=== PATIENT | male | born 1980 | race Caucasian/White ===

== ENCOUNTER 2019-05-06 13:38 | Emergency (ER) | payer SELFPAY ==
[~2019-05-06] VITALS: Ht 185.4 cm; Wt 99.8 kg
[2019-05-06 14:00] VITALS: BP 147/87
--- NOTE | 2019-05-06 14:02 | NUR ---
PT AMBULATED TO ED JUAN ALBERTO
--- NOTE | 2019-05-06 15:05 | NUR ---
ASSESSMENT COMPLETE AT THIS TIME. PATIENT SITTING UP IN CHAIR. NO NEEDS STATED.
--- NOTE | 2019-05-06 15:28 | NUR ---
PATIENT AMBULATED TO BED 1 AT THIS TIME.
[2019-05-06] MEDS ORDERED: FLUORESCEIN OPTH STRIP 1 MG OP ONE (15:30)
[2019-05-06] MEDS ORDERED: TETRACAINE HCL/PF 0.5% OPTH 4 ML BTL OP ONE (15:30)
--- NOTE | 2019-05-06 15:35 | NUR ---
PT LYING IN BED, LOOKING AT CELLPHONE.
--- NOTE | 2019-05-06 16:24 | NUR ---
Patient discharged with v/s stable. Written and verbal after care instructions given and explained. Patient alert, oriented and verbalized understanding of instructions. Ambulatory with steady gait. All questions addressed prior to discharge. ID band removed. Patient advised to follow up with PMD. Rx of MOXEZA, TYLENOL given. Patient educated on indication of medication including possible reaction and side effects. Opportunity to ask questions provided and answered.
[2019-05-06 16:29] VITALS: BP 147/87
== END 2019-05-06 16:24 | disposition home or self-care (01) ==
LOC: MED 13:38
DX: T15.92XA Foreign body on external eye, part unspecified, left eye, initial encounter (principal); F17.210 Nicotine dependence, cigarettes, uncomplicated; X58.XXXA Exposure to other specified factors, initial encounter
CPT/HCPCS: 99283

== ENCOUNTER 2020-10-30 20:06 | Emergency (ER) | payer SELFPAY ==
[~2020-10-30] VITALS: Ht 185.4 cm; Wt 90.7 kg
[2020-10-30 20:14] VITALS: BP 129/90
--- NOTE | 2020-10-30 20:17 | NUR ---
TO LOBBY A/W BED AMBULATORY
--- NOTE | 2020-10-30 21:07 | NUR ---
CALLED TO BE SEEN BY ERMD, NO RESPONSE PATIENT LEFT WITHOUT BEING SEEN BY DR. CABRERA. NO FURTHER CARE PROVIDED FOR PATIENT.
--- NOTE | 2020-10-30 21:12 | NUR ---
CALLED FOR THE SECOND TIME , NO RESPONSE
--- NOTE | 2020-10-30 21:20 | NUR ---
CALLED FOR THE THIRD TIME , NO RESPONSE
== END 2020-10-30 21:07 | disposition left against medical advice (07) ==
LOC: MED 20:06
DX: Z04.89 Encounter for examination and observation for other specified reasons (principal); Z53.21 Procedure and treatment not carried out due to patient leaving prior to being seen by health care provider

== ENCOUNTER 2021-05-11 12:54 | Emergency (ER) | payer OTHER ==
[~2021-05-11] VITALS: Ht 185.4 cm; Wt 95.3 kg
[2021-05-11 12:55] VITALS: BP 133/71
--- NOTE | 2021-05-11 13:00 | NUR ---
BIBA TO BED 9.
[2021-05-11] MEDS ORDERED: ONDANSETRON 4 MG ODT PO ONE (13:05)
[2021-05-11] MEDS ORDERED: MORPHINE SULFATE 4 MG/ML SYR IM ONE (13:05)
--- NOTE | 2021-05-11 13:13 | NUR ---
XRAY AT BEDSIDE WITH PATIENT
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
--- NOTE | 2021-05-11 13:38 | NUR ---
PT REPOSITIONED AND PROVIDED WITH WARM BLANKET
[2021-05-11] MEDS ORDERED: IBUP-1842 PO (13:59)
[2021-05-11 14:25] VITALS: BP 133/71
== END 2021-05-11 14:28 | disposition home or self-care (01) ==
LOC: MED 12:54
DX: S40.012A Contusion of left shoulder, initial encounter (principal); F17.210 Nicotine dependence, cigarettes, uncomplicated; V98.8XXA Other specified transport accidents, initial encounter; Y93.89 Activity, other specified; Y92.89 Other specified places as the place of occurrence of the external cause; Y99.8 Other external cause status
CPT/HCPCS: 71045; 73030; 73060; 73080; 73090; 93005; 96372; 99284; J2270; Q0092; Q0162

== ENCOUNTER 2021-05-13 11:30 | Emergency (ER) | payer SELFPAY ==
[~2021-05-13] VITALS: Ht 185.4 cm; Wt 95.3 kg
[~2021-05-13 11:30] MED LIST: IBUP-1842 PO
[2021-05-13 11:37] VITALS: BP 131/69
--- NOTE | 2021-05-13 11:42 | NUR ---
PT TO [facility]
[2021-05-13] MEDS ORDERED: ACETAMINOPHEN EXTRA STRENGTH 500 MG TAB PO ONE (11:50)
--- NOTE | 2021-05-13 12:01 | NUR ---
per ermd pt right arm was place in a sling and pmcs was assessed before and after all wnl.
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
[2021-05-13] MEDS ORDERED: ACET-10509 PO (12:06)
[2021-05-13] MEDS ORDERED: METH-1681 PO (12:06)
--- NOTE | 2021-05-13 12:17 | NUR ---
Chart checked and completed. The patient's care was reviewed and supervised by Kely Bolivar RN.
== END 2021-05-13 12:15 | disposition home or self-care (01) ==
LOC: MED 11:30
DX: M25.512 Pain in left shoulder (principal); V98.8XXA Other specified transport accidents, initial encounter; Y93.89 Activity, other specified; Y92.89 Other specified places as the place of occurrence of the external cause; Y99.8 Other external cause status
CPT/HCPCS: 99283